=== PATIENT | male | born 1960 | race African-American/Black ===

== ENCOUNTER 2018-03-14 20:58 | Emergency (ER) | payer MEDICARE, MEDICAID ==
[2018-03-14] MEDS ORDERED: ACETAMINOPHEN 325 MG TABLET PO ONE (22:23)
[2018-03-14] MEDS ORDERED: DEXAMETHASONE SOD PHOS INJ 10 MG/1 ML VIAL IM ONE (22:23)
--- NOTE | 2018-03-14 22:29 | ER Document Report ---
HPI - HPI Pain Level: 4 Notes: Patient is a 58-year-old male who presents to the ED complaining of left knee pain, swelling, and left anterior thigh pain. Patient states that his left knee pain has been ongoing over the last several days that started when he was walking. He has been using some [id number] meds with minimal relief. Patient states that on occasion his knee feels like he wants to give out on him. He also complains of left anterior thigh pain since his hip replacement " a long time ago." Patient states that it is sensitive at the site of his incision, without any redness or discharge. Patient states that the pains do not radiate. Patient states that he is still able to ambulate otherwise. He is eating and drinking without difficulties. He is urinating normally and having normal bowel movements. No h/o gout. Denies any other recent illness. Denies any IV drug use. Denies any headache, fever, URI, sore throat, chest pain, palpitations, syncope, cough, shortness of breath, wheeze, dyspnea, abdominal pain, nausea/vomiting/diarrhea, urinary retention, dysuria, hematuria , loss of control of bowel or bladder, numbness/tingling, saddle anesthesia, muscle paralysis/weakness, or rash. Patient would also like a refill of his amlodipine 10 mg daily for his blood pressure as he ran out. - ROS Systems Reviewed and Negative: Yes All other systems reviewed and negative Past Medical History - Social History Smoking Status: Unknown if Ever Smoked Family History: Reviewed & Not Pertinent Vertical Provider Document - CONSTITUTIONAL Agree With Documented VS: Yes Notes: PHYSICAL EXAMINATION: GENERAL: Well-appearing, well-nourished and in no acute distress. LUNGS: Breath sounds clear to auscultation bilaterally and equal. No wheezes rales or rhonchi. HEART: Regular rate and rhythm without murmurs, rubs, gallops. ABDOMEN: Soft, nontender, nondistended abdomen. No guarding, no rebound. No masses appreciated. Normal bowel sounds present. No CVA tenderness bilaterally. No pulsatile mass Musculoskeletal: Lt hip: FROM. Strength 5+/5. No crepitus. + mild tenderness to palp of the anterior mid thigh. No erythema, ecchymosis, abscess , abrasion, wound dehiscence. Lt knee: + mild effusion noted. + tenderness to the anterior knee and joint lines b/l. LROM to passive/active to flexion due to swelling. Strength 5+/5. + crepitus. Ligaments feel stable, but pt resisting. Wanda grossly negative, but could not adequately assess with swelling. No erythema or warmth. Back: FROM to passive/active. Strength 5+/5. No vertebral point tenderness, stepoffs, or deformities. No other bony tenderness, erythema, swelling, or ecchymosis. SLR negative b/l. No SI jt tenderness. No foot drop Extremities: No cyanosis, clubbing, or edema b/l. Peripheral pulses 2+. Capillary refill less than 2 seconds. NEUROLOGICAL: Normal speech, mild limp to ambulation at the left knee. Normal sensory, motor exams. Reflexes 2+ b/l. PSYCH: Normal mood, normal affect. SKIN: Warm, Dry, normal turgor, no rashes or lesions noted. - INFECTION CONTROL TRAVEL OUTSIDE OF THE [place] IN LAST 30 DAYS: No Course - Re-evaluation Re-evalutation: 03/14/18 00:00 Patient is an afebrile, well-hydrated, 58-year-old male who presents to the ED with left knee pain and mild effusion as well as chronic left anterior thigh pain. Vitals are acceptable. PE is otherwise unremarkable for any neurovascular compromise, obvious tendon/ligament rupture, obvious fracture/ dislocation, septic joint. X-ray was unremarkable for any acute pathology aside from the swelling. He has no significant tachycardia, tachypnea, or hypoxia. He is able to ambulate and weight-bear. Patient declined Toradol. Tylenol given p.o. and Decadron given IM. Knee immobilizer was placed and crutches given. I will send him home with a prescription for naproxen and Voltaren gel. Refill of his Amlodipine 10mg provided. Advised patient to schedule an appointment with orthopedics for further evaluation and management. Recheck with your PCM in 3-5 days as well. Return to the ED with any worsening/concerning symptoms otherwise as reviewed discharge. Patient is in agreement. Discharge - Discharge Clinical Impression: Left thigh pain Left knee pain Qualifiers: Chronicity: acute Qualified Code(s): M25.562 - Pain in left knee Condition: Stable Disposition: HOME, SELF-CARE Instructions: Use of Crutches ([facility]), Ice & Elevation ([facility]), Knee Immobilizing Splint ([facility]) Additional Instructions: Rest, Ice, Compression, Elevation Use crutches/splint as directed Tylenol/ibuprofen as needed Light stretches daily Strength exercises as able Moist heat and massage may help F/u with your PCP in 3-5 days for a recheck Schedule an appointment with orthopedics for further evaluation and management Return to the ED with any worsening symptoms and/or development of fever, headache, chest pain, palpitations, syncope, shortness of breath, trouble breathing, abdominal pain, n/v/d, muscle weakness/paralysis, numbness/tingling, swelling, redness, or other worsening symptoms that are concerning to you. Prescriptions: Amlodipine Besylate 10 mg PO DAILY #30 tab Diclofenac Sodium [Voltaren] 4 gm TP QID PRN #100 gel..gm. PRN Reason: Naproxen 500 mg PO BID PRN #30 tablet PRN Reason: Forms: Elevated Blood Pressure Referrals: [facility] [Provider Group] - Follow up in 3-5 days
--- NOTE | 2018-03-15 | RADIOLOGY REPORT (SQ) ---
EXAM DESCRIPTION: XR KNEE 4 OR MORE VIEWS CLINICAL HISTORY: 58 years Male, left knee pain, noted effusion COMPARISON: None. Findings: Moderate quadriceps enthesophyte and small distal patellar enthesophytes.. Bones, joints, and soft tissues of the XR RIGHT KNEE 4 VIEWS appear otherwise intact. IMPRESSION: No acute findings.
== END 2018-03-15 00:20 | disposition home or self-care (01) ==
LOC: ER 20:58
DX: M25.562 Pain in left knee (principal); M25.462 Effusion, left knee; M79.652 Pain in left thigh; G89.29 Other chronic pain; Z96.649 Presence of unspecified artificial hip joint
CPT/HCPCS: 99283; 96372; 73562; L1830; A9270; J1100